=== PATIENT | male | born 1950 ===

== ENCOUNTER 2023-04-09 17:18 | Outpatient (CLI) | payer MEDICARE ==
--- NOTE | 2023-04-09 22:57 | XRAY Report ---
PROCEDURE: Knee 3 View RT INDICATIONS: RIGHT KNEE OSTEOARTHRITIS TECHNIQUE: 3 views of the right knee(s) were acquired. COMPARISON: None. FINDINGS: Bones: No definite fractures or dislocations. No suspicious bony lesions. Severe tricompartmental d egenerative changes of the right knee. Mild lateral and moderate medial femorotibial compartment join t space narrowing. Prominent marginal osteophyte formation. Soft tissues: Small knee joint effusion. No suspicious soft tissue calcifications or masses. IMPRESSION: Right knee without definite fracture. Normal alignment. 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 If there is persistent clinical concern for occult fracture, consider further evaluation with CT or M RI. Reviewed by: Alec Byers MD on 04/09/2023 10:56 PM PDT Approved by: Alec Byers MD on 04/09/2023 10:56 PM PDT Station ID: [id number]
== END 2023-04-09 23:59 | disposition home or self-care (01) ==
LOC: DI.S 17:18
PROVIDERS: ATTEND Emergency Medicine
DX: M17.11 Unilateral primary osteoarthritis, right knee (principal); M25.461 Effusion, right knee

== ENCOUNTER 2024-03-10 07:00 | Outpatient (CLI) | payer MEDICARE ==
--- NOTE | 2024-03-10 16:33 | XRAY Report ---
PROCEDURE: Hand 3+V LT INDICATIONS: LEFT HAND SWELLING TECHNIQUE: 3 views of the hand(s) acquired. COMPARISON: None. FINDINGS: Bones: There is slightly irregular appearance poorly characterize and not well seen on all views of the third metacarpal head. Soft tissues: No suspicious soft tissue calcifications or masses. IMPRESSION: Poorly visualized third metacarpal head irregularity not well seen on all views. While this could rep resent arthritic change with osteophyte, nondisplaced fracture cannot be definitively excluded. Follo w-up imaging in 7-10 days is recommended. Reviewed by: Adelaida Anderson MD on 03/10/2024 4:32 PM PDT Approved by: Adelaida Anderson MD on 03/10/2024 4:32 PM PDT Station ID: [id number]
== END 2024-03-10 23:59 | disposition home or self-care (01) ==
LOC: DI.S 07:00
PROVIDERS: ATTEND Physician Assistant Medical
DX: R22.32 Localized swelling, mass and lump, left upper limb (principal)